=== PATIENT | female | born 1980 | race African-American/Black ===

== ENCOUNTER 2017-01-30 14:32 | Emergency (ER) | payer SELFPAY ==
[~2017-01-30] VITALS: Ht 172.7 cm; Wt 81.6 kg
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
--- NOTE | 2017-01-30 14:39 | NUR ---
MD Roca at bedside
[2017-01-30] MEDS ORDERED: HYDROCODONE/APAP 5/325MG 1 EACH TABLET ONE ×2 (14:42→15:52)
--- NOTE | 2017-01-30 14:48 | NUR ---
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
--- NOTE | 2017-01-30 14:48 | NUR ---
medicate pt as ordered
[2017-01-30 14:53] LABS: BASOPHILS % (AUTO) 0.7 % (0.0-2.0); EOSINOPHILS # (AUTO) 0.1 /CMM (0.0-0.7); EOSINOPHILS % (AUTO) 2.2 % (0.0-6.0); HEMATOCRIT 39 % (33-45); HEMOGLOBIN 13.2 g/dL (11.5-14.8); LYMPHOCYTES # (AUTO) 1.7 /CMM (0.8-4.8); LYMPHOCYTES % (AUTO) 29.4 % (20.0-44.0); MEAN CORPUSCULAR HEMOGLOBIN 32 PG (26.0-33.0); MEAN CORPUSCULAR HGB CONC 34 g/dl (31.0-36.0); MEAN CORPUSCULAR VOLUME 95 fL (82-100); MONOCYTES # (AUTO) 0.5 /CMM (0.1-1.30); MONOCYTES % (AUTO) 8.4 % (2.0-12.0); NEUTROPHILS # (AUTO) 3.5 /CMM (1.8-8.9); NEUTROPHILS % (AUTO) 59.3 % (43.0-81.0); PLATELET COUNT (AUTO) 250 /CMM (150-450); RDW COEFFICIENT OF VARIATION 11.6 (11.5-15.0); RED BLOOD CELL COUNT(AUTO) 4.11 MIL/uL (4.0-5.2); WHITE BLOOD COUNT (AUTO) 5.9 K/uL (4.3-11.0)
[2017-01-30] MEDS ORDERED: HYDROCODONE/APAP 5/325MG 1 EACH TABLET PO ONE ×2 (15:00→16:00)
[2017-01-30 15:03] LABS: CALCIUM, SERUM 8.6 mg/dL (8.5-10.1); CREATININE 0.9 mg/dL (0.6-1.3); POTASSIUM 3.5 mmol/L (3.5-5.1)
--- NOTE | 2017-01-30 15:15 | NUR ---
Pt was taken to readiology department
[2017-01-30] MEDS ORDERED: IOHEXOL-350 100 ML VIAL IV ONE (16:56)
[2017-01-30] MEDS ORDERED: CT SWABBABLE VALVE TRANS SET 1 EA INFUS.SET MC ONE (16:56)
[2017-01-30] MEDS ORDERED: IV NS 0.9% 250 ML IV ONE (16:56)
--- NOTE | 2017-01-30 17:43 | NUR ---
PATIENT WAS TAKEN TO RADILOGY DEPT FOR BLE
--- NOTE | 2017-01-30 17:43 | NUR ---
PATIENT IS BACK TO ROOM,. VSS
[2017-01-30 18:53] VITALS: BP 112/68
--- NOTE | 2017-01-30 18:53 | NUR ---
Crutches dispensed. Pt instructed on proper use of crutches. Patient able to demonstrate correct use of crutches.
--- NOTE | 2017-01-30 18:53 | NUR ---
Patient discharged to home in stable condition. Written and verbal after care instructions given. Patient verbalizes understanding of instruction.
--- NOTE | 2017-01-30 18:58 | NUR ---
IV removed. Catheter intact and site benign. Pressure and 4x4 applied to site. No bleeding noted. Patient discharged to home in stable condition. Written and verbal after care instructions given. Patient verbalizes understanding of instruction.
== END 2017-01-30 18:56 | disposition home or self-care (01) ==
LOC: ER 14:37
DX: S80.211A Abrasion, right knee, initial encounter (principal); V09.29XA Pedestrian injured in traffic accident involving other motor vehicles, initial encounter; Y93.89 Activity, other specified; Y92.413 State road as the place of occurrence of the external cause; Y99.8 Other external cause status
CPT/HCPCS: 36415; 72170-TC; 73130-TC; 73550-TC; 73564-TC; 75635-TC; 80048-TC; 84702-TC; 85025-TC; A4606; J7050; Q9967; Z7610